=== PATIENT | female | born 1970 | race Caucasian/White ===

== ENCOUNTER 2017-05-07 16:59 | Emergency (ER) | payer OTHER ==
[2017-05-07 17:16] VITALS: BP 133/79
[2017-05-07] MEDS ORDERED: Bacitracin Oint 1 GM U/D Packet TOP ONE (17:30)
--- NOTE | 2017-05-07 17:34 | EDM.PDOC ---
ED HPI GENERAL MEDICAL PROBLEM - General Chief Complaint: Laceration Stated Complaint: L POINTER LACERATION Time Seen by Provider: 05/07/17 17:28 Source of Information: Reports: Patient, Family, RN Notes Reviewed History Limitations: Reports: No Limitations - History of Present Illness INITIAL COMMENTS - FREE TEXT/NARRATIVE: 47-year-old female presents emergency department day with a laceration palmar surface left hand digit #2 in between the proximal and middle phalanges, this occurred while she was cutting a deer meat has no functional complaints Left 2-Index finger Pain Score (Numeric/FACES): 7 - Related Data Allergies Allergy/AdvReac Type Severity Reaction Status Date / Time adhesive Allergy Rash Verified 05/07/17 17:16 Penicillins Allergy Cannot Verified 05/07/17 17:16 Remember Sulfa (Sulfonamide Allergy Cannot Verified 05/07/17 17:16 Antibiotics) Remember Home Meds: Home Meds Levothyroxine 175 mcg PO ACBREAKFAST 08/14/14 [History] Omeprazole 20 mg PO DAILY #1 cap.sr 08/14/14 [Rx] Ascorbate Calcium [Vitamin C] 500 mg PO DAILY 11/30/15 [History] Cetirizine [ZyrTEC] 10 mg PO DAILY PRN 11/30/15 [History] EPINEPHrine [Epipen] 1 applic IM DAILY PRN 11/30/15 [History] Estradiol 1 mg PO DAILY 11/30/15 [History] Methylphenidate [Concerta] 18 mg PO DAILY 11/30/15 [History] Sertraline [Zoloft] 100 mg PO DAILY 11/30/15 [History] amLODIPine Besylate [Norvasc] 2.5 mg PO DAILY 11/30/15 [History] traZODone 50 mg PO BEDTIME PRN 11/30/15 [History] ClonazePAM [KlonoPIN] 0.5 mg PO ASDIRECTED PRN 05/07/17 [History] Past Medical History Gastrointestinal History: Reports: Cholelithiasis, GERD 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: Musculoskeletal History: Reports: Fracture, Fibromyalgia Psychiatric History: Reports: ADHD, Anxiety, Depression Endocrine/Metabolic History: Reports: Hypothyroidism Immunologic History: Reports: Other (See Below) Oncologic (Cancer) History: Reports: Cervix - Infectious Disease History Infectious Disease History: Reports: Chicken Pox, Shingles - Past Surgical History Other Cardiovascular Surgeries/Procedures: raynauds GI Surgical History: Reports: Cholecystectomy Female Surgical History: Reports: Section, Hysterectomy, Oophorectomy, Salpingo-Oophorectomy Social & Family History - Family History Family Medical History: Unobtainable Cardiac: Reports: CAD Endocrine/Metabolic: Reports: Diabetes, type II Oncologic: Reports: Bladder, Breast, Colon, Liver, Lung - Tobacco Use Smoking Status *Q: Current Every Day Smoker Years of Tobacco use: 30 Packs/Tins Daily: 0.5 Used Tobacco, but Quit: No Second Hand Smoke Exposure: Yes - Caffeine Use Caffeine Use: Reports: Coffee - Alcohol Use Days Per Week of Alcohol Use: 1 Number of Drinks Per Day: 2 Total Drinks Per Week: 2 - Recreational Drug Use Recreational Drug Use: No ED ROS GENERAL - Review of Systems Review Of Systems: See Below Constitutional: Reports: No Symptoms Musculoskeletal: Reports: No Symptoms Skin: Reports: Wound Neurological: Reports: No Symptoms ED EXAM, SKIN/RASH Exam: See Below Text/Narrative:: Examination of left hand she has full range of motion of all digits radial pulse +2 there is a 1 cm laceration across the palmar surface proximal phalangeal to middle phalanges it is completely through the dermis into the subcutaneous tissue ED SKIN PROCEDURES - Laceration/Wound Repair Left Finger Lac/Wound length In cm: 1 Appearance: Subcutaneous Distal NVT: Neuro & Vascular Intact, No Tendon Injury Anesthetic Type: Digital Local Anesthesia - Lidocaine (Xylocaine): 1% Plain Local Anesthetic Volume: 2cc Skin Prep: Saline Saline Irrigation (cc's): 60 Exploration/Debridement/Repair: Wound Explored, In a Bloodless Field, Explored to Base Closed with: Sutures Suture Size: 4-0 # of Sutures: 2 Suture Type: Nylon, Interrupted Sterile Dressing Applied: Nurse Tetanus Status Addressed: Yes (2008) Complications: No Course - Vital Signs Last Recorded V/S: Last Vital Signs Temp 97.2 F 05/07/17 17:11 Pulse 88 05/07/17 17:11 Resp 20 05/07/17 17:11 BP 133/79 05/07/17 17:11 Pulse Ox 95 05/07/17 17:11 - Orders/Labs/Meds Meds: Medications Discontinued Medications Generic Name Dose Route Start Last Admin Trade Name Freq PRN Reason Stop Dose Admin Bacitracin 1 dose 05/07/17 17:30 05/07/17 17:50 Bacitracin Oint 1 Gm TOP 05/07/17 17:31 1 dose ONETIME ONE Administration Lidocaine HCl 5 ml 05/07/17 17:30 05/07/17 17:50 Xylocaine-Mpf 1% INJECT 05/07/17 17:31 5 ml ONETIME ONE Administration Departure - Departure Time of Disposition: 17:55 Disposition: Home, Self-Care 01 Condition: Good Clinical Impression: Laceration of left index finger Qualifiers: Encounter type: initial encounter Damage to nail status: without damage Foreign body presence: without foreign body Qualified Code(s): S61.211A - Laceration without foreign body of left index finger without damage to nail, initial encounter - Discharge Information Referrals: J Luis Carmona MD [Primary Care Provider] - Forms: ED Department Discharge Additional Instructions: Suture removal in 10 days, follow wound care instruction sheet, follow with primary care for suture removal, call return to the emergency department worsening of symptoms - Assessment/Plan Plan: Assessment Acuity = acute Site and laterality = 1 cm laceration palmar surface digit #2 left hand Etiology = secondary trauma with a knife Manifestations = none Location of injury = Home Lab values = none Plan Suture removal in 10 days, follow wound care instruction sheet, follow up with primary care for suture removal Patient was in agreement with the plan all questions were answered, they were instructed to return to the emergency department or call for worsening symptoms. This note was dictated using [employer] voice recognition software please call with any questions.
== END 2017-05-07 18:06 | disposition home or self-care (01) ==
LOC: JP.ED 16:59
DX: S61.211A Laceration without foreign body of left index finger without damage to nail, initial encounter (principal); K21.9 Gastro-esophageal reflux disease without esophagitis; F32.9 Major depressive disorder, single episode, unspecified; E03.9 Hypothyroidism, unspecified; F17.210 Nicotine dependence, cigarettes, uncomplicated; Z79.899 Other long term (current) drug therapy; Z88.0 Allergy status to penicillin; Z88.2 Allergy status to sulfonamides; Z91.048 Other nonmedicinal substance allergy status; W45.8XXA Other foreign body or object entering through skin, initial encounter
CPT/HCPCS: 12001; 99283-25

== ENCOUNTER 2017-06-07 15:44 | Emergency (ER) | payer OTHER ==
[2017-06-07] MEDS ORDERED: Ondansetron 4 MG Tab.DIS PO ONE (16:10)
[2017-06-07] MEDS ORDERED: Hyoscyamine 0.125 MG Tab.SL SL ONE (16:37)
--- NOTE | 2017-06-07 16:41 | EDM.PDOC ---
ED HPI GENERAL MEDICAL PROBLEM - General Chief Complaint: Gastrointestinal Problem Stated Complaint: ABD CRAMPS Time Seen by Provider: 06/07/17 16:14 Source of Information: Reports: Patient, Old Records, RN Notes Reviewed History Limitations: Reports: No Limitations - History of Present Illness INITIAL COMMENTS - FREE TEXT/NARRATIVE: 47-year-old female presents emergency department today complaint of nausea and diarrhea, she has had loose stools for the last 3 days multiple stools per day mostly watery she thinks there may be some blood in her stool has seen mucus as well has not vomited no fevers does have a history of colitis was treated in the past 2014 also history of colonoscopy 2 years ago - Related Data Allergies Allergy/AdvReac Type Severity Reaction Status Date / Time adhesive Allergy Rash Verified 05/07/17 17:16 Penicillins Allergy Cannot Verified 05/07/17 17:16 Remember Sulfa (Sulfonamide Allergy Cannot Verified 05/07/17 17:16 Antibiotics) Remember Home Meds: Home Meds Levothyroxine 175 mcg PO ACBREAKFAST 08/14/14 [History] Omeprazole 20 mg PO DAILY #1 cap.sr 08/14/14 [Rx] Ascorbate Calcium [Vitamin C] 500 mg PO DAILY 11/30/15 [History] Cetirizine [ZyrTEC] 10 mg PO DAILY PRN 11/30/15 [History] EPINEPHrine [Epipen] 1 applic IM DAILY PRN 11/30/15 [History] Estradiol 1 mg PO DAILY 11/30/15 [History] Methylphenidate [Concerta] 18 mg PO DAILY 11/30/15 [History] Sertraline [Zoloft] 100 mg PO DAILY 11/30/15 [History] amLODIPine Besylate [Norvasc] 2.5 mg PO DAILY 11/30/15 [History] traZODone 50 mg PO BEDTIME PRN 11/30/15 [History] ClonazePAM [KlonoPIN] 0.5 mg PO ASDIRECTED PRN 05/07/17 [History] Past Medical History Gastrointestinal History: Reports: Cholelithiasis, 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: Musculoskeletal History: Reports: Fracture, Fibromyalgia Psychiatric History: Reports: ADHD, Anxiety, Depression Endocrine/Metabolic History: Reports: Hypothyroidism Immunologic History: Reports: Other (See Below) Oncologic (Cancer) History: Reports: Cervix - Infectious Disease History Infectious Disease History: Reports: Chicken Pox, Shingles - Past Surgical History Other Cardiovascular Surgeries/Procedures: raynauds GI Surgical History: Reports: Cholecystectomy Female Surgical History: Reports: Section, Hysterectomy, Oophorectomy, Salpingo-Oophorectomy Social & Family History - Family History Family Medical History: Unobtainable Cardiac: Reports: CAD Endocrine/Metabolic: Reports: Diabetes, type II Oncologic: Reports: Bladder, Breast, Colon, Liver, Lung - Tobacco Use Smoking Status *Q: Current Every Day Smoker Years of Tobacco use: 15 Packs/Tins Daily: 0.3 Used Tobacco, but Quit: No Second Hand Smoke Exposure: Yes - Caffeine Use Caffeine Use: Reports: Coffee - Alcohol Use Days Per Week of Alcohol Use: 1 Number of Drinks Per Day: 2 Total Drinks Per Week: 2 - Recreational Drug Use Recreational Drug Use: No ED ROS GENERAL - Review of Systems Review Of Systems: See Below Constitutional: Denies: Fever, Chills HEENT: Reports: No Symptoms Respiratory: Reports: No Symptoms Cardiovascular: Reports: No Symptoms GI/Abdominal: Reports: Abdominal Pain (Cramping), Bloody Stool, Diarrhea, Distension, Mucous in Stool : Reports: No Symptoms Musculoskeletal: Reports: No Symptoms Skin: Reports: No Symptoms ED EXAM, GI/ABD - Physical Exam Exam: See Below Text/Narrative:: General: Female, not in any distress, alert and oriented x3 HEENT: head is atraumatic normocephalic, eyes pupils equal round reactive to light, sclera clear no conjunctivitis appreciated. Ears tympanic membranes clear and borrego landmarks and light reflex are present bilaterally canals are clear. Nose no septal deviation, nares are clear, no blood present. Mouth mucosa is moist and pink no erythema or exudate noted in soft palate, tongue is midline uvula is midline, dentition is intact. Neck: Supple no thyromegaly no tracheal deviation. Nodes: Cervical nodes subclavicular nodes nontender no palpable lymphadenopathy noted. Lungs: clear to auscultation bilaterally with symmetrical respirations, no adventitious noise appreciated. CV: Regular rate and rhythm S1 and S2 appreciated no murmurs rubs or gallops noted. Abdomen: Soft, obese, nontender, no palpable masses or organomegaly appreciated , no distention no guarding bowel sounds are present, . Neuro: Cranial nerves II through XII grossly intact Skin: Warm and dry, intact Extremities: No lower extremity edema appreciated, Course - Vital Signs Last Recorded V/S: Last Vital Signs Temp 96.4 F 06/07/17 18:13 Pulse 67 06/07/17 18:13 Resp 16 06/07/17 18:13 BP 116/59 L 06/07/17 18:13 Pulse Ox 95 06/07/17 18:13 - Orders/Labs/Meds Orders: Active Orders 24 hr Category Date Time Status CLOSTRIDIUM DIFFICILE BY PCR [RM] Stat Lab 06/07/17 16:10 Uncollected UA W/MICROSCOPIC [URIN] Urgent Lab 06/07/17 18:26 Ordered WBC, STOOL [OP] Stat Lab 06/07/17 16:10 Uncollected Labs: Laboratory Tests 06/07/17 06/07/17 Range/Units 16:35 16:35 WBC 9.2 (4.5-11.0) K/uL RBC 4.76 (3.30-5.50) M/uL Hgb 14.4 (12.0-15.0) g/dL Hct 42.8 (36.0-48.0) % MCV 90 (80-98) fL MCH 30 (27-31) pg MCHC 34 (32-36) % Plt Count 212 (150-400) K/uL Neut % (Auto) 64 (36-66) % Lymph % (Auto) 27 (24-44) % Dixie % (Auto) 7 H (2-6) % Eos % (Auto) 1 L (2-4) % Baso % (Auto) 1 (0-1) % Sodium 141 (140-148) mmol/L Potassium 4.1 (3.6-5.2) mmol/L Chloride 104 (100-108) mmol/L Carbon Dioxide 27 (21-32) mmol/L Anion Gap 10.0 (5.0-14.0) mmol/L BUN 19 H (7-18) mg/dL Creatinine 0.9 (0.6-1.0) mg/dL Est Cr Clr Drug Dosing 68.16 mL/min Estimated GFR (MDRD) > 60 (>60) Glucose 110 H (74-106) mg/dL Calcium 9.2 (8.5-10.1) mg/dL Total Bilirubin 0.6 (0.2-1.0) mg/dL AST 19 (15-37) U/L ALT 30 (12-78) U/L Alkaline Phosphatase 153 H (46-116) U/L Total Protein 7.2 (6.4-8.2) g/dL Albumin 3.6 (3.4-5.0) g/dL Globulin 3.6 H (2.3-3.5) g/dL Albumin/Globulin Ratio 1.0 L (1.2-2.2) Meds: Medications Discontinued Medications Generic Name Dose Route Start Last Admin Trade Name Satish PRN Reason Stop Dose Admin Hyoscyamine 0.125 mg 06/07/17 16:37 06/07/17 16:56 Hyomax-Sl SL 06/07/17 16:38 0.125 mg ONETIME ONE Administration Ondansetron HCl 4 mg 06/07/17 16:10 06/07/17 16:54 Zofran Odt PO 06/07/17 16:11 4 mg ONETIME ONE Administration Departure - Departure Time of Disposition: 18:38 Disposition: Home, Self-Care 01 Condition: Good Clinical Impression: Diarrhea Qualifiers: Diarrhea type: unspecified type Qualified Code(s): R19.7 - Diarrhea, unspecified - Discharge Information Referrals: J Luis Carmona MD [Primary Care Provider] - Forms: ED Department Discharge Additional Instructions: Please return a stool to the lab, Please followup with your primary care provider in 3-5 days if not better, please call return to the emergency department with worsening of symptoms. - My Orders Last 24 Hours: My Active Orders 06/07/17 16:10 CLOSTRIDIUM DIFFICILE BY PCR [RM] Stat WBC, STOOL [OP] Stat 06/07/17 18:26 UA W/MICROSCOPIC [URIN] Urgent - Assessment/Plan Last 24 Hours: My Active Orders 06/07/17 16:10 CLOSTRIDIUM DIFFICILE BY PCR [RM] Stat WBC, STOOL [OP] Stat 06/07/17 18:26 UA W/MICROSCOPIC [URIN] Urgent Plan: Assessment Acuity = acute Site and laterality = loose stools Etiology = unclear etiology Manifestations = none Location of injury = Home Lab values = CBC, CMP unremarkable, Plan She was unable to provide a stool sample while in the emergency department for the last couple hours plan is to discharge home with stool sample collection Will check for C. difficile and WBCs does have a history of colitis the past was treated with antibiotics. Her follow-up with her primary care in 3-5 days if not better Patient was in agreement with the plan all questions were answered, they were instructed to return to the emergency department or call for worsening symptoms. This note was dictated using [employer] voice recognition software please call with any questions.
[2017-06-07 18:14] VITALS: BP 116/59
== END 2017-06-07 18:53 | disposition home or self-care (01) ==
LOC: JP.ED 15:44
DX: R19.7 Diarrhea, unspecified (principal); Z79.899 Other long term (current) drug therapy; Z88.0 Allergy status to penicillin; Z88.2 Allergy status to sulfonamides; Z91.09 Other allergy status, other than to drugs and biological substances
CPT/HCPCS: 36415; 80053; 81001; 85025; 99284; A9270

== ENCOUNTER 2017-07-13 11:53 | Emergency (ER) | payer OTHER ==
[2017-07-13 12:07] VITALS: BP 140/93
--- NOTE | 2017-07-13 12:26 | EDM.PDOC ---
ED HPI GENERAL MEDICAL PROBLEM - General Chief Complaint: Lower Extremity Injury/Pain Stated Complaint: R KNEE PAIN/FALL Time Seen by Provider: 07/13/17 12:15 Source of Information: Reports: Patient, Old Records History Limitations: Reports: No Limitations - History of Present Illness INITIAL COMMENTS - FREE TEXT/NARRATIVE: 47 yo female slipped last night injuring her R ant/medial knee. Feels better if she walks with a fully extended knee in a locked position. Feels tight if she flexes it too far. No hx of problems with that knee. 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) RIGHT;KNEE Pain Score (Numeric/FACES): 5 - Related Data Allergies Allergy/AdvReac Type Severity Reaction Status Date / Time adhesive Allergy Rash Verified 07/13/17 12:07 Penicillins Allergy Cannot Verified 07/13/17 12:07 Remember Sulfa (Sulfonamide Allergy Cannot Verified 07/13/17 12:07 Antibiotics) Remember Home Meds: Home Meds Levothyroxine 175 mcg PO ACBREAKFAST 08/14/14 [History] Omeprazole 20 mg PO DAILY #1 cap.sr 08/14/14 [Rx] Ascorbate Calcium [Vitamin C] 500 mg PO DAILY 11/30/15 [History] Cetirizine [ZyrTEC] 10 mg PO DAILY PRN 11/30/15 [History] EPINEPHrine [Epipen] 1 applic IM DAILY PRN 11/30/15 [History] Estradiol 1 mg PO DAILY 11/30/15 [History] Methylphenidate [Concerta] 18 mg PO DAILY 11/30/15 [History] Sertraline [Zoloft] 100 mg PO DAILY 11/30/15 [History] amLODIPine Besylate [Norvasc] 2.5 mg PO DAILY 11/30/15 [History] traZODone 50 mg PO BEDTIME PRN 11/30/15 [History] ClonazePAM [KlonoPIN] 0.5 mg PO ASDIRECTED PRN 05/07/17 [History] ClonazePAM [KlonoPIN] 0.5 mg PO DAILY PRN 07/13/17 [History] Past Medical History Gastrointestinal History: Reports: Cholelithiasis, 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: Musculoskeletal History: Reports: Fracture, Fibromyalgia Psychiatric History: Reports: ADHD, Anxiety, Depression Endocrine/Metabolic History: Reports: Hypothyroidism Immunologic History: Reports: Other (See Below) Oncologic (Cancer) History: Reports: Cervix - Infectious Disease History Infectious Disease History: Reports: C-Difficile - Past Surgical History Other Cardiovascular Surgeries/Procedures: raynauds GI Surgical History: Reports: Cholecystectomy Female Surgical History: Reports: Section, Hysterectomy, Oophorectomy, Salpingo-Oophorectomy Social & Family History - Family History Family Medical History: Unobtainable Cardiac: Reports: CAD Endocrine/Metabolic: Reports: Diabetes, type II Oncologic: Reports: Bladder, Breast, Colon, Liver, Lung - Tobacco Use Smoking Status *Q: Current Every Day Smoker Years of Tobacco use: 15 Packs/Tins Daily: 0.3 Used Tobacco, but Quit: No Second Hand Smoke Exposure: Yes - Caffeine Use Caffeine Use: Reports: Coffee - Alcohol Use Days Per Week of Alcohol Use: 1 Number of Drinks Per Day: 2 Total Drinks Per Week: 2 - Recreational Drug Use Recreational Drug Use: No Review of Systems - Review of Systems Review Of Systems: See Below Constitutional: Reports: No Symptoms Musculoskeletal: Reports: Joint Pain (R knee) Skin: Reports: No Symptoms Neurological: Reports: No Symptoms ED EXAM, GENERAL - Physical Exam Exam: See Below Exam Limited By: No Limitations General Appearance: Alert, WD/WN, No Apparent Distress, Obese Extremities: Normal Inspection, Other (mild ant/medial jt line tenderness. Minimal effusion. No ligamentous). No: Joint Swelling, Increased Warmth, Redness Neurological: Alert, Oriented, CN II-XII Intact, Normal Cognition, No Motor/ Sensory Deficits Psychiatric: Normal Affect, Normal Mood Skin Exam: Warm, Dry, Intact, Normal Color, No Rash Course - Vital Signs Text/Narrative:: Knee immobilizer applied. Last Recorded V/S: Last Vital Signs Temp 36.1 C 07/13/17 12:01 Pulse 79 07/13/17 12:01 Resp 16 07/13/17 12:01 BP 140/93 H 07/13/17 12:01 Pulse Ox 95 07/13/17 12:01 Departure - Departure Time of Disposition: 12:28 Disposition: Home, Self-Care 01 Condition: Good Clinical Impression: Acute meniscal injury of right knee Qualifiers: Encounter type: initial encounter Qualified Code(s): S83.8X1A - Sprain of other specified parts of right knee, initial encounter - Discharge Information Referrals: J Luis Carmona MD [Primary Care Provider] - Forms: ED Department Discharge Additional Instructions: Use knee immobilizer for support/protection. Take ibuprofen 600 mg every 6 hrs with food. May add acetaminophen as needed for added relief. F/U with orthopedics next week.
== END 2017-07-13 12:46 | disposition home or self-care (01) ==
LOC: JP.ED 11:53
DX: S83.8X1A Sprain of other specified parts of right knee, initial encounter (principal); K21.9 Gastro-esophageal reflux disease without esophagitis; F32.9 Major depressive disorder, single episode, unspecified; E03.9 Hypothyroidism, unspecified; F17.210 Nicotine dependence, cigarettes, uncomplicated; Z79.899 Other long term (current) drug therapy; Z88.0 Allergy status to penicillin; Z88.2 Allergy status to sulfonamides; Z91.048 Other nonmedicinal substance allergy status; W01.0XXA Fall on same level from slipping, tripping and stumbling without subsequent striking against object, initial encounter
CPT/HCPCS: 99283

== ENCOUNTER 2018-02-05 11:48 | Emergency (ER) | payer SELFPAY ==
[2018-02-05 12:19] VITALS: BP 141/69
[2018-02-05] MEDS ORDERED: Codeine/guaiFENesin 100mg-10 MG/5 ML Syrup 10 ML Cup PO ONE (12:44)
--- NOTE | 2018-02-05 13:07 | EDM.PDOC ---
ED HPI GENERAL MEDICAL PROBLEM - General Chief Complaint: Neck Problem Stated Complaint: SPINE FRACTURE IN NECK Time Seen by Provider: 02/05/18 12:42 Source of Information: Reports: Patient, RN Notes Reviewed History Limitations: Reports: No Limitations - History of Present Illness INITIAL COMMENTS - FREE TEXT/NARRATIVE: 47-year-old female sent over from clinic for apparent fracture cervical spine, she states she was told this by her primary care provider which then demonstrated on x-ray unfortunately the x-rays are unavailable at this time. She states she does have sinus congestion and a cough has been coughing quite hard as of late. Is not experiencing any numbness and tingling does have pain at the top of her neck posterior aspect Head Pain Score (Numeric/FACES): 5 - Related Data Allergies Allergy/AdvReac Type Severity Reaction Status Date / Time adhesive Allergy Rash Verified 02/05/18 12:19 Penicillins Allergy Cannot Verified 02/05/18 12:19 Remember Sulfa (Sulfonamide Allergy Cannot Verified 02/05/18 12:19 Antibiotics) Remember Home Meds: Home Meds Levothyroxine 175 mcg PO ACBREAKFAST 08/14/14 [History] Omeprazole 20 mg PO DAILY #1 cap.sr 08/14/14 [Rx] Ascorbate Calcium [Vitamin C] 500 mg PO DAILY 11/30/15 [History] Cetirizine [ZyrTEC] 10 mg PO DAILY PRN 11/30/15 [History] EPINEPHrine [Epipen] 1 applic IM DAILY PRN 11/30/15 [History] Estradiol 1 mg PO DAILY 11/30/15 [History] Methylphenidate [Concerta] 18 mg PO DAILY 11/30/15 [History] Sertraline [Zoloft] 100 mg PO DAILY 11/30/15 [History] traZODone 50 mg PO BEDTIME PRN 11/30/15 [History] ClonazePAM [KlonoPIN] 0.5 mg PO DAILY PRN 07/13/17 [History] Past Medical History HEENT History: Reports: Impaired Vision Respiratory History: Reports: Sleep Apnea, SOB, Other (See Below) Other Respiratory History: bronchitis Gastrointestinal History: Reports: Cholelithiasis, Diverticulosis, 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: Musculoskeletal History: Reports: Fracture, Fibromyalgia Other Musculoskeletal History: right knee pain Psychiatric History: Reports: ADHD, Anxiety, Depression Endocrine/Metabolic History: Reports: Hypothyroidism, Obesity/BMI 30+ Immunologic History: Reports: Other (See Below) Oncologic (Cancer) History: Reports: Cervix - Infectious Disease History Infectious Disease History: Reports: Chicken Pox, Shingles - Past Surgical History Head Surgeries/Procedures: Reports: None Cardiovascular Surgical History: Reports: Other (See Below) Other Cardiovascular Surgeries/Procedures: raynauds Respiratory Surgical History: Reports: None GI Surgical History: Reports: Cholecystectomy, Colonoscopy Female Surgical History: Reports: Section, Hysterectomy, Oophorectomy, Salpingo-Oophorectomy Endocrine Surgical History: Reports: None Neurological Surgical History: Reports: None Musculoskeletal Surgical History: Reports: Other (See Below) Other Musculoskeletal Surgeries/Procedures:: right wrist surgery Oncologic Surgical History: Reports: None Dermatological Surgical History: Reports: None Social & Family History - Family History Family Medical History: Unobtainable Cardiac: Reports: CAD Endocrine/Metabolic: Reports: Diabetes, type II Oncologic: Reports: Bladder, Breast, Colon, Liver, Lung - Tobacco Use Smoking Status *Q: Current Every Day Smoker Years of Tobacco use: 30 Packs/Tins Daily: 0.2 Used Tobacco, but Quit: No Second Hand Smoke Exposure: No - Caffeine Use Caffeine Use: Reports: Coffee - Recreational Drug Use Recreational Drug Use: Yes Drug Use in Last 12 Months: Yes Recreational Drug Type: Reports: Marijuana/Hashish Recreational Drug Use Frequency: Weekly ED ROS GENERAL - Review of Systems Review Of Systems: See Below Constitutional: Reports: No Symptoms HEENT: Reports: No Symptoms Respiratory: Reports: Cough Cardiovascular: Reports: No Symptoms GI/Abdominal: Reports: No Symptoms : Reports: No Symptoms Musculoskeletal: Reports: Neck Pain Skin: Reports: No Symptoms Neurological: Reports: No Symptoms ED EXAM, UPPER BACK/NECK PAIN - Physical Exam Exam: See Below Exam Limited By: No Limitations General Appearance: Alert, WD/WN, No Apparent Distress Head Exam: Atraumatic, Normocephalic Neck Exam: Full Range of Motion, Normal Alignment, Normal Inspection, Paraspinous Muscle Tender, Tenderness, Tender Lateral. No: Spinous Processes Tender, Stiff Neck, Tender Midline Cardiovascular/Respiratory: No Respiratory Distress Course - Vital Signs Last Recorded V/S: Last Vital Signs Temp 96.1 F 02/05/18 12:31 Pulse 83 02/05/18 12:31 Resp 18 08/15/18 12:31 BP 141/69 H 02/05/18 12:31 Pulse Ox 98 02/05/18 12:31 - Orders/Labs/Meds Meds: Medications Discontinued Medications Generic Name Dose Route Start Last Admin Trade Name Satish PRN Reason Stop Dose Admin Guaifenesin/Codeine Phosphate 10 ml 02/05/18 12:44 02/05/18 12:50 Robitussin Ac PO 02/05/18 12:45 10 ml ONETIME ONE Administration Departure - Departure Time of Disposition: 14:20 Disposition: Home, Self-Care 01 Condition: Good Clinical Impression: Neck pain - Discharge Information Referrals: J Luis Carmona MD [Primary Care Provider] - Forms: ED Department Discharge Additional Instructions: Use the Robitussin-AC as needed to help suppress cough, Please followup with your primary care provider in 3-5 days if not better, please call return to the emergency department with worsening of symptoms. - Assessment/Plan Plan: Assessment Acuity = acute Site and laterality = neck pain Etiology = secondary to coughing Manifestations = none Location of injury = Home Lab values = CT scan of the neck shows no acute fracture Plan She was provided Robitussin-AC 10 mL by mouth every 6 hours when necessary total 120 mL follow-up with primary care in 3-5 days if no improvement This note was dictated using [employer] voice recognition software please call with any questions on syntax or grammar.
--- NOTE | 2018-02-05 13:51 | CT ---
Cervical spine CT History: Evaluate for fracture. Technique: Axial images were obtained through the cervical spine. Sagittal and coronal images were re constructed. Auto dosage reduction and iterative reconstruction techniques were employed. Findings: There is straightening of the cervical spine with loss of the normal lordosis. There is no vertebral subluxation. The vertebral bodies are normal in height. There are no compression deformitie s. Posterior elements appear intact. There is degenerative spurring at the atlantodens interval. Ther e are no findings of fracture. There is degenerative disc space loss at C 4/5-6/7 levels. There are hypertrophic endplate changes. T here is uncinate hypertrophy. There is severe right and moderate left foraminal stenosis at C4/5. The re is moderate bilateral foraminal stenosis C5/6. There is mild left foraminal narrowing at C6/7. Calcified lymph nodes are noted of the mediastinum consistent with a prior granulomatous disease proc ess. Impression: 1. Cervical spondylosis. 2. No evidence for fracture.
== END 2018-02-05 14:29 | disposition home or self-care (01) ==
LOC: JP.ED 11:48
DX: M54.2 Cervicalgia (principal); R05 Cough; F17.210 Nicotine dependence, cigarettes, uncomplicated; E66.9 Obesity, unspecified; Z79.899 Other long term (current) drug therapy; Z91.09 Other allergy status, other than to drugs and biological substances; Z88.0 Allergy status to penicillin; Z88.2 Allergy status to sulfonamides
CPT/HCPCS: 72125; 99284; A9270

== ENCOUNTER 2019-03-11 12:55 | Emergency (ER) | payer SELFPAY ==
[2019-03-11] MEDS ORDERED: EPINEPHrine 1 MG/ML SDV IM ONE (13:55)
[2019-03-11] MEDS ORDERED: predniSONE 20 MG Tab PO ONE (13:55)
[2019-03-11] MEDS ORDERED: diphenhydrAMINE 50 MG/ML SDV IM ONE (13:55)
--- NOTE | 2019-03-11 13:59 | EDM.PDOC ---
ED HPI GENERAL MEDICAL PROBLEM - General Chief Complaint: Bite:Animal, Insect Stated Complaint: BEE STING AND ALLERGIC Time Seen by Provider: 03/11/19 13:52 Source of Information: Reports: Patient, RN Notes Reviewed History Limitations: Reports: No Limitations - History of Present Illness INITIAL COMMENTS - FREE TEXT/NARRATIVE: 49-year-old female presents emergency department today with a bee sting to her right arm she states she has chest tightness and feels like her tongue is swelling she normally uses the EpiPen unfortunately he was damage prior to her giving herself her injection - Related Data Allergies Allergy/AdvReac Type Severity Reaction Status Date / Time adhesive Allergy Rash Verified 03/11/19 13:52 Penicillins Allergy Cannot Verified 03/11/19 13:52 Remember Sulfa (Sulfonamide Allergy Cannot Verified 03/11/19 13:52 Antibiotics) Remember Home Meds: Home Meds Levothyroxine 175 mcg PO ACBREAKFAST 08/14/14 [History] Omeprazole 20 mg PO DAILY #1 cap.sr 08/14/14 [Rx] Ascorbate Calcium [Vitamin C] 500 mg PO DAILY 11/30/15 [History] Cetirizine [ZyrTEC] 10 mg PO DAILY PRN 11/30/15 [History] EPINEPHrine [Epipen] 1 applic IM DAILY PRN 11/30/15 [History] Estradiol 1 mg PO DAILY 11/30/15 [History] Methylphenidate [Concerta] 18 mg PO DAILY 11/30/15 [History] Sertraline [Zoloft] 100 mg PO DAILY 11/30/15 [History] traZODone 50 mg PO BEDTIME PRN 11/30/15 [History] ClonazePAM [KlonoPIN] 0.5 mg PO DAILY PRN 07/13/17 [History] Past Medical History HEENT History: Reports: Impaired Vision Respiratory History: Reports: Sleep Apnea, SOB, Other (See Below) Other Respiratory History: bronchitis Gastrointestinal History: Reports: Cholelithiasis, Diverticulosis, 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: Musculoskeletal History: Reports: Fracture, Fibromyalgia Other Musculoskeletal History: right knee pain Psychiatric History: Reports: ADHD, Anxiety, Depression Endocrine/Metabolic History: Reports: Hypothyroidism, Obesity/BMI 30+ Immunologic History: Reports: Other (See Below) Other Immunologic History: hypothyroidism Oncologic (Cancer) History: Reports: Cervix - Infectious Disease History Infectious Disease History: Reports: Chicken Pox, Shingles - Past Surgical History Head Surgeries/Procedures: Reports: None HEENT Surgical History: Reports: None Cardiovascular Surgical History: Reports: None, Other (See Below) Other Cardiovascular Surgeries/Procedures: raynauds Respiratory Surgical History: Reports: None GI Surgical History: Reports: Cholecystectomy, Colonoscopy Female Surgical History: Reports: Section, Hysterectomy, Oophorectomy, Salpingo-Oophorectomy Endocrine Surgical History: Reports: None Neurological Surgical History: Reports: None Musculoskeletal Surgical History: Reports: Other (See Below) Other Musculoskeletal Surgeries/Procedures:: right wrist surgery Oncologic Surgical History: Reports: None Dermatological Surgical History: Reports: None Social & Family History - Family History Family Medical History: Unobtainable HEENT: Reports: Cataract, Impaired Vision Cardiac: Reports: Angina, CAD, Heart Failure, High Cholesterol, Hypertension, Prior Cardiac Arrest Respiratory: Reports: Asthma, COPD, Sleep Apnea GI: Reports: Bowel Obstruction, Colon Polyps, Diverticulitis, GERD, Irritable Bowel Syndrome : Reports: Other (See Below) Other Family History: sister had kindey removed for unknown reason OBGYN: Reports: Endometriosis, Musculoskeletal: Reports: Arthritis, Back pain, Chronic, Fibromyalgia Psychiatric: Reports: Anxiety, Depression Endocrine/Metabolic: Reports: Diabetes, type II, Hypothyroidism Hematologic: Reports: Anemia Immunologic: Reports: None Dermatologic: Reports: None Oncologic: Reports: Bladder, Breast, Colon, Liver, Lung - Caffeine Use Caffeine Use: Reports: Coffee ED ROS GENERAL - Review of Systems Review Of Systems: See Below HEENT: Reports: Throat Swelling Respiratory: Reports: No Symptoms Cardiovascular: Reports: Other (Chest tightness) GI/Abdominal: Reports: No Symptoms ED EXAM, ANIMAL BITE - Physical Exam Exam: See Below Exam Limited By: No Limitations General Appearance: Alert, WD/WN, No Apparent Distress Throat/Mouth: Normal Inspection, Normal Lips, Normal Teeth, Normal Gums, Normal Oropharynx, Normal Voice, No Airway Compromise Respiratory/Chest: No Respiratory Distress, Lungs Clear, Normal Breath Sounds, No Accessory Muscle Use, Chest Non-Tender Cardiovascular: Regular Rate, Rhythm, No Murmur Course - Vital Signs Last Recorded V/S: Last Vital Signs Temp 97.1 F 03/11/19 13:14 Pulse 65 03/11/19 14:28 Resp 16 03/11/19 14:28 BP 118/77 03/11/19 14:28 Pulse Ox 97 03/11/19 14:28 - Orders/Labs/Meds Meds: Medications Discontinued Medications Generic Name Dose Route Start Last Admin Trade Name Satish PRN Reason Stop Dose Admin Diphenhydramine HCl 50 mg 03/11/19 13:55 03/11/19 13:59 Benadryl IM 03/11/19 13:56 50 mg ONETIME ONE Administration Epinephrine HCl 0.3 mg 03/11/19 13:55 03/11/19 13:58 Adrenalin IM 03/11/19 13:56 0.3 mg ONETIME ONE Administration Prednisone 60 mg 03/11/19 13:55 03/11/19 14:08 Prednisone PO 03/11/19 13:56 60 mg WITHBREAKFAST ONE Administration Departure - Departure Time of Disposition: 16:23 Disposition: Home, Self-Care 01 Condition: Fair Clinical Impression: Allergic reaction to bee sting - Discharge Information Referrals: PCP,None [Primary Care Provider] - Forms: ED Department Discharge Additional Instructions: Follow-up primary care as needed please fill the prescription for the epinephrine and use as directed call or return to the emergency department worsening symptoms - Assessment/Plan Plan: Assessment Acuity = acute Site and laterality = allergic reaction Etiology = secondary to bee sting Manifestations = none Location of injury = Home Lab values = none Plan Good response to accommodation prednisone, epinephrine and Benadryl discharge to home with prescription for EpiPen 0.3 mg use as needed follow-up primary care 3-5 days if needed This note was dictated using [employer] voice recognition software please call with any questions on syntax or grammar.
[2019-03-11 14:29] VITALS: BP 118/77; PULSE 65
== END 2019-03-11 16:28 | disposition home or self-care (01) ==
LOC: JP.ED 12:55
DX: T63.441A Toxic effect of venom of bees, accidental (unintentional), initial encounter (principal); T78.40XA Allergy, unspecified, initial encounter; F32.9 Major depressive disorder, single episode, unspecified; F41.9 Anxiety disorder, unspecified; F90.9 Attention-deficit hyperactivity disorder, unspecified type; K21.9 Gastro-esophageal reflux disease without esophagitis; E03.9 Hypothyroidism, unspecified; E66.9 Obesity, unspecified; Z91.048 Other nonmedicinal substance allergy status; Z88.2 Allergy status to sulfonamides; Z79.899 Other long term (current) drug therapy; Z90.710 Acquired absence of both cervix and uterus; Z90.722 Acquired absence of ovaries, bilateral; Z90.49 Acquired absence of other specified parts of digestive tract; Z68.41 Body mass index [BMI] 40.0-44.9, adult
CPT/HCPCS: 96372; 99282; A9270; J0171; J1200; 99283

== ENCOUNTER 2020-12-19 19:59 | Emergency (ER) | payer MEDICAID ==
[2020-12-19 20:17] VITALS: BP 138/86; PULSE 68
--- NOTE | 2020-12-19 20:31 | EDM.PDOC ---
ED HPI GENERAL MEDICAL PROBLEM - General Chief Complaint: Upper Extremity Injury/Pain Stated Complaint: FALL.WRIST INJURY Time Seen by Provider: 12/19/20 20:30 Source of Information: Reports: Patient, RN Notes Reviewed History Limitations: Reports: No Limitations - History of Present Illness INITIAL COMMENTS - FREE TEXT/NARRATIVE: Leatha presents today for complaints of left wrist/hand pain. She reports she slipped on a puddle of liquid at [id number]. She reports a small bump to the side of her wrist right away but now it is bruised. She tried use of ice, elevation and ibuprofen for pain with little results. She denies any other injury, hitting head, LOC, fever, chills, nausea, vomiting, change in bowel/bladder or other concerns. Left Wrist Pain Score (Numeric/FACES): 5 - Related Data Allergies Allergy/AdvReac Type Severity Reaction Status Date / Time adhesive Allergy Rash Verified 12/19/20 20:20 Penicillins Allergy Cannot Verified 12/19/20 20:20 Remember Sulfa (Sulfonamide Allergy Cannot Verified 12/19/20 20:20 Antibiotics) Remember Home Meds: Home Meds Levothyroxine 200 mcg PO ACBREAKFAST 08/14/14 [History] Omeprazole 20 mg PO DAILY #1 cap.sr 08/14/14 [Rx] Cetirizine [ZyrTEC] 10 mg PO DAILY PRN 11/30/15 [History] EPINEPHrine [Epipen] 1 applic IM DAILY PRN 11/30/15 [History] Estradiol 1 mg PO DAILY 11/30/15 [History] Sertraline [Zoloft] 2 tab PO DAILY 11/30/15 [History] ClonazePAM [KlonoPIN] 0.5 mg PO DAILY PRN 07/13/17 [History] Albuterol Sulfate [Albuterol Sulfate Hfa] 2 puff INH ASDIRECTED 12/19/20 [History] Rosuvastatin [Crestor] 1 tab PO DAILY 12/19/20 [History] amLODIPine [Norvasc] 1 tab PO DAILY 12/19/20 [History] metFORMIN [Glucophage XR] 1 tab PO DAILY 12/19/20 [History] Past Medical History HEENT History: Reports: Impaired Vision Cardiovascular History: Reports: None Respiratory History: Reports: Asthma, Sleep Apnea, SOB, Other (See Below) Other Respiratory History: bronchitis Gastrointestinal History: Reports: Cholelithiasis, Diverticulosis, GERD Genitourinary History: Reports: None, Other (See Below) Other Genitourinary History: sometimes has blood in urine - 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: Musculoskeletal History: Reports: Fracture, Fibromyalgia Other Musculoskeletal History: right knee pain Psychiatric History: Reports: ADHD, Anxiety, Depression Endocrine/Metabolic History: Reports: Hypothyroidism, Obesity/BMI 30+ Hematologic History: Reports: None Immunologic History: Reports: Other (See Below) Other Immunologic History: hypothyroidism Oncologic (Cancer) History: Reports: Cervix - Infectious Disease History Infectious Disease History: Reports: Chicken Pox, Shingles - Past Surgical History Head Surgeries/Procedures: Reports: None HEENT Surgical History: Reports: None Cardiovascular Surgical History: Reports: None, Other (See Below) Other Cardiovascular Surgeries/Procedures: raynauds Respiratory Surgical History: Reports: None GI Surgical History: Reports: Cholecystectomy, Colonoscopy Female Surgical History: Reports: Section, Hysterectomy, Oophorectomy, Salpingo-Oophorectomy Endocrine Surgical History: Reports: None Neurological Surgical History: Reports: None Musculoskeletal Surgical History: Reports: Other (See Below) Other Musculoskeletal Surgeries/Procedures:: right wrist surgery Oncologic Surgical History: Reports: None Dermatological Surgical History: Reports: None Social & Family History - Family History Family Medical History: Unobtainable HEENT: Reports: Cataract, Impaired Vision Cardiac: Reports: Angina, CAD, Heart Failure, High Cholesterol, Hypertension, Prior Cardiac Arrest Respiratory: Reports: Asthma, COPD, Sleep Apnea GI: Reports: Bowel Obstruction, Colon Polyps, Diverticulitis, GERD, Irritable Bowel Syndrome : Reports: Other (See Below) Other Family History: sister had kindey removed for unknown reason OBGYN: Reports: Endometriosis, Musculoskeletal: Reports: Arthritis, Back pain, Chronic, Fibromyalgia Psychiatric: Reports: Anxiety, Depression Endocrine/Metabolic: Reports: Diabetes, type II, Hypothyroidism Hematologic: Reports: Anemia Immunologic: Reports: None Dermatologic: Reports: None Oncologic: Reports: Bladder, Breast, Colon, Liver, Lung - Tobacco Use Tobacco Use Status *Q: Current Every Day Tobacco User Years of Tobacco use: 30 Packs/Tins Daily: 0.5 - Caffeine Use Caffeine Use: Reports: Coffee - Recreational Drug Use Recreational Drug Type: Reports: Marijuana/Hashish Review of Systems - Review of Systems Review Of Systems: See Below Constitutional: Reports: No Symptoms Eyes: Reports: No Symptoms Ears: Reports: No Symptoms Nose: Reports: No Symptoms Mouth/Throat: Reports: No Symptoms Respiratory: Reports: No Symptoms Cardiovascular: Reports: No Symptoms GI/Abdominal: Reports: No Symptoms Genitourinary: Reports: No Symptoms Musculoskeletal: Reports: Hand Pain (left hand/wrist pain after slipping on liquid on the floor and striking a counter top edge at [id number]. ) Skin: Reports: Bruising (left laterl hand/wrist) Neurological: Reports: No Symptoms Psychiatric: Reports: No Symptoms ED EXAM, GENERAL - Physical Exam Exam: See Below Exam Limited By: No Limitations General Appearance: Alert, WD/WN, No Apparent Distress Head: Atraumatic, Normocephalic Respiratory/Chest: No Respiratory Distress, Lungs Clear, Normal Breath Sounds, No Accessory Muscle Use, Chest Non-Tender. No: Crackles, Rales, Rhonchi, Wheezing Cardiovascular: Normal Peripheral Pulses, Regular Rate, Rhythm, No Edema, No Murmur, No Rub Peripheral Pulses: 4+: Radial (L), Radial (R) Back Exam: Normal Inspection, Full Range of Motion. No: CVA Tenderness (R), CVA Tenderness (L), Decreased Range of Motion, Muscle Spasm, Paraspinal Tenderness, Vertebral Tenderness Extremities: Normal Range of Motion, Normal Capillary Refill, Other (tenderness with ROM to left wrist/5th metacarpal-proximal area. ). No: Joint Swelling Neurological: Alert, Oriented, CN II-XII Intact, Normal Cognition, Normal Reflexes, No Motor/Sensory Deficits, Confused Psychiatric: Normal Affect, Normal Mood Skin Exam: Warm, Dry, Intact, No Rash, Ecchymosis (left lateral wrist/area at proximal 5th metacarpal, trace edema) Lymphatic: No Adenopathy ED TRAUMA EXTREMITY PROCEDURES - Splinting Left Upper Extremity Splint Site: left short arm splint Pre-Procedure NV Status: Normal Post-Procedure NV Status: Normal Splint Material: Fiberglass Splint Design: Gutter Applied & Form Fitted By: Provider Provider Post-Splint Application NV Check: NV Status Normal, Good Position Complications: No Progress/Comments: Patient tolerated well. Course - Vital Signs Last Recorded V/S: Last Vital Signs Temp 36.6 C 12/19/20 20:18 Pulse 68 12/19/20 20:18 Resp 16 06/28/21 20:18 BP 138/86 12/19/20 20:18 Pulse Ox 95 12/19/20 20:18 - Orders/Labs/Meds Orders: Active Orders 24 hr Category Date Time Status Notify Provider Consults [RC] ASDIRECTED Care 12/19/20 21:22 Active Consult to Orthopedics [CONS] Routine Cons 12/19/20 21:19 Ordered Wrist Comp Min 3V Lt [CR] Stat Exams 12/19/20 20:38 Taken - Radiology Interpretation Free Text/Narrative:: X-ray left wrist wet read, reviewed noted Buckle fracture of distal end of left ulna. Reviewed with Officer, he is in agreement with plan. Ulnar/gutter splint applied, patient tolerated well. Sling provided. Referral placed for follow up with Dr. Fernandez. Departure - Departure Time of Disposition: 21:16 Disposition: Home, Self-Care 01 Condition: Good Clinical Impression: Buckle fracture of distal end of left ulna - Discharge Information *PRESCRIPTION DRUG MONITORING PROGRAM REVIEWED*: Not Applicable *COPY OF PRESCRIPTION DRUG MONITORING REPORT IN PATIENT RIDGE: Not Applicable Instructions: Cast or Splint Care, Adult, [id number], Wrist Fracture Treated With Immobilization, [id number] Referrals: J Luis Carmona MD [Primary Care Provider] - Forms: ED Department Discharge Additional Instructions: You have been evaluated and treated for a left distal buckle fracture of the ulna. Keep splint on at all times. Keep the splint clean and dry. Rest, ice, elevate the left arm to help with pain. Use sling to help keep arm comfortable and decrease pain. You can take tylenol and ibuprofen as needed for pain with food. Follow up with Dr. Ellis - orthopedics for further care. A referral was placed. Return for any worsening, issues or concerns. Sepsis Event Note (ED) - Evaluation Sepsis Screening Result: No Definite Risk - Focused Exam Vital Signs: Vital Signs Temp Pulse Resp BP Pulse Ox 12/19/20 20:18 36.6 C 68 16 138/86 95 12/19/20 20:12 36.6 C 68 16 138/86 95 - My Orders Last 24 Hours: My Active Orders 12/19/20 20:38 Wrist Comp Min 3V Lt [CR] Stat 12/19/20 21:19 Consult to Orthopedics [CONS] Routine 12/19/20 21:22 Notify Provider Consults [RC] ASDIRECTED - Assessment/Plan Last 24 Hours: My Active Orders 12/19/20 20:38 Wrist Comp Min 3V Lt [CR] Stat 12/19/20 21:19 Consult to Orthopedics [CONS] Routine 12/19/20 21:22 Notify Provider Consults [RC] ASDIRECTED Assessment:: Buckle fracture of distal end of left ulna Plan: Patient evaluated and treated for a left distal buckle fracture of the ulna. Keep splint on at all times. Keep the splint clean and dry. Rest, ice, elevate the left arm to help with pain. Use sling to help keep arm comfortable and decrease pain. You can take tylenol and ibuprofen as needed for pain with food. Follow up with Dr. Ellis - orthopedics for further care. A referral was placed. Return for any worsening, issues or concerns.
--- NOTE | 2020-12-20 08:47 | CR ---
Wrist Comp Min 3V Lt CLINICAL HISTORY: Injury FINDINGS: There is no acute fracture or dislocation within the left wrist. Impression: No fracture seen
== END 2020-12-19 21:33 | disposition home or self-care (01) ==
LOC: JP.ED 19:59
DX: S52.622A Torus fracture of lower end of left ulna, initial encounter for closed fracture (principal); J45.909 Unspecified asthma, uncomplicated; K21.9 Gastro-esophageal reflux disease without esophagitis; E03.9 Hypothyroidism, unspecified; E66.9 Obesity, unspecified; Z68.35 Body mass index [BMI] 35.0-35.9, adult; Z72.0 Tobacco use; Z79.899 Other long term (current) drug therapy; Z79.84 Long term (current) use of oral hypoglycemic drugs; Z88.0 Allergy status to penicillin; Z88.2 Allergy status to sulfonamides; Z91.048 Other nonmedicinal substance allergy status; W01.0XXA Fall on same level from slipping, tripping and stumbling without subsequent striking against object, initial encounter
CPT/HCPCS: 29125; 73110-26-LT; 73110-LT; 99282; 99283-25

== ENCOUNTER 2022-07-21 16:49 | Emergency (ER) | payer MEDICAID ==
[2022-07-21 17:05] VITALS: BP 112/68; PULSE 75
[2022-07-21] MEDS ORDERED: Lidocaine 1% with EPINEPHrine 1:100,000 50 ML MDV SUBCUT STA (17:19)
[2022-07-21] MEDS ORDERED: Bacitracin Oint 1 GM U/D Packet TOP ONE (17:19)
== END 2022-07-21 17:36 | disposition home or self-care (01) ==
LOC: JP.ED 16:49
DX: S61.411A Laceration without foreign body of right hand, initial encounter (principal); E78.00 Pure hypercholesterolemia, unspecified; E03.9 Hypothyroidism, unspecified; J44.9 Chronic obstructive pulmonary disease, unspecified; E11.9 Type 2 diabetes mellitus without complications; K21.9 Gastro-esophageal reflux disease without esophagitis; F17.210 Nicotine dependence, cigarettes, uncomplicated; E66.9 Obesity, unspecified; Z68.34 Body mass index [BMI] 34.0-34.9, adult; Z91.048 Other nonmedicinal substance allergy status; Z88.0 Allergy status to penicillin; Z88.2 Allergy status to sulfonamides; Z91.030 Bee allergy status; W26.8XXA Contact with other sharp object(s), not elsewhere classified, initial encounter
CPT/HCPCS: 12001; 99281; 99282

== ENCOUNTER 2023-09-22 02:44 | Emergency (ER) | payer SELFPAY ==
[2023-09-22 02:57] VITALS: BP 151/79; PULSE 72
[2023-09-22] MEDS: Ketorolac 30 MG/ML SDV IM ONE (03:17)
[2023-09-22] MEDS: cefTRIAXone 1 GM, Lidocaine 1% 2.1 ML IM ONE (03:32)
[2023-09-22] MEDS: traMADol 50 MG Tab PO ONE (03:59)
== END 2023-09-22 04:35 | disposition home or self-care (01) ==
LOC: JP.ED 02:44
DX: S02.5XXA Fracture of tooth (traumatic), initial encounter for closed fracture (principal); H66.91 Otitis media, unspecified, right ear; K04.7 Periapical abscess without sinus; E78.00 Pure hypercholesterolemia, unspecified; J45.909 Unspecified asthma, uncomplicated; K21.9 Gastro-esophageal reflux disease without esophagitis; E03.9 Hypothyroidism, unspecified; E66.9 Obesity, unspecified; F17.210 Nicotine dependence, cigarettes, uncomplicated; Z91.048 Other nonmedicinal substance allergy status; Z91.030 Bee allergy status; Z88.0 Allergy status to penicillin; Z88.2 Allergy status to sulfonamides; Z90.49 Acquired absence of other specified parts of digestive tract; Z79.84 Long term (current) use of oral hypoglycemic drugs; Z79.899 Other long term (current) drug therapy; Z68.34 Body mass index [BMI] 34.0-34.9, adult; X58.XXXA Exposure to other specified factors, initial encounter
CPT/HCPCS: 96372; 99283; A9270; J0696; J1885